=== PATIENT | male | born 1960 | race Caucasian/White ===

== ENCOUNTER 2016-04-25 19:21 | Emergency (ER) | payer BC ==
[2016-04-25] MEDS ORDERED: ONDANSETRON ODT 4 MG TAB ONE (21:29)
[2016-04-25] MEDS ORDERED: DILAUDID 1 MG/ML AMP ONE (21:29)
== END 2016-04-25 22:01 | disposition home or self-care (01) ==
LOC: FASTR 19:21
CPT/HCPCS: 72100; 96372